=== PATIENT | male | born 1965 | race Caucasian/White ===

== ENCOUNTER 2021-04-26 12:31 | Emergency (ER) | payer OTHER ==
[~2021-04-26] VITALS: Ht 175.3 cm; Wt 79.5 kg
[2021-04-26 12:40] VITALS: BP 163/82
[2021-04-26] MEDS ORDERED: TETanus/Pertussis (Acell)/Diphther VAC/PF (Tdap-Adult) 0.5ml syringe IMVAC ONE (12:50)
[2021-04-26] MEDS ORDERED: LIDOcaine 1% W/epiNEPHrine 1:200,000 10ml vial IJ ONE (12:50)
[2021-04-26] MEDS ORDERED: CEPH500C2 PO (13:42)
== END 2021-04-26 14:00 | disposition home or self-care (01) ==
LOC: ER 12:31
DX: S41.112A Laceration without foreign body of left upper arm, initial encounter (principal); Z79.2 Long term (current) use of antibiotics; Z20.3 Contact with and (suspected) exposure to rabies; W19.XXXA Unspecified fall, initial encounter; Y93.89 Activity, other specified; Y92.89 Other specified places as the place of occurrence of the external cause; Y99.8 Other external cause status
CPT/HCPCS: 12031; 90471; 90715; 99284